=== PATIENT | female | born 1985 | race Hispanic/Latino ===

== ENCOUNTER 2023-12-30 00:48 | Emergency (ER) | payer SELFPAY ==
[2011-11-24 15:27] VITALS: BP 140/86
--- OUTSIDE RECORDS SUMMARY | 2023-12-30 00:51 | XMS REPORT | Continuity of Care Document ---
Author Name Unknown Address [address] [facility] [address] [place] [address] [facility] thconnect Address [address] [place] [address] Care Team Providers Care Institutional Asset Manager Name Role Phone Pcp, Patient Does Not Have A Primary Care Physic barbie Demetrius BAIRES Attending Clinician Unavailable Demetrius Evans Attending Clinician [phone] ALLAN MAST Attending Clinician Unavailable Allan Mast MD Attending Clinician [phone] DIANA VILLAR Attending Clinician Unavailable ALLAN MAST Admitting Clinician Unavailable Allergies, Adverse Reactions, Alerts Allergy Name Allergy Type Status Severity Reaction(s) Onset Date Inactive Date Treating Clinician Comments Source NO KNOWN ALLERGIE S Drug Class Active [facility] Social History Social Habit Start Date Stop Date Quantity Comments Source Sexual orientation U [facility] Sex Assigned At 1985 00:00:00 1985 00:00:00 [facility] Smoking Status Start Date Stop Date Source Tobacco smoking consumption unknown [facility] Medications Ordered Medication Name Filled Medication Name Start Date Stop Date Current Medication? Ordering Clinician Indication Dosage Frequency Signature (SIG) Comments Components Source ketorolac (TORADOL) injection 30 mg 12-11 07:00: 00 12-11 05:58 :00 No 30mg 30 mg, Intramuscu lar, ONCE, 1 dose, On Tue12/12/23 at 0200, [facility] ibuprofen 600 mg tablet 12-11 00:00: 00 Yes [id number] 600mg Take 1 tablet by mouth every 6 (six) hours as needed for Pain (scale 4-6). [facility] cephALEXin 500 mg capsule 12-11 00:00: 00 12-19 04:59 :00 Yes [id number] 500mg Take 1 capsule by mouth in the morning and 1 capsule at noon and 1 capsule in the evening. Do all this for 7 days. [facility] proCHLORper azine (COMPAZINE) 10 mg in NaCl 0.9% (NS) piggyback 03:45: 00 04:23 :00 No 10mg 10 mg, IV Piggyback, at 100 mL/hr Administer over 30 Minutes, ONCE, 1 dose, On Tue11/30/23 at 2145, [facility] ketorolac (TORADOL) injection 30 mg 03:45: 00 03:25 :00 No 30mg 30 mg, Slow IV Push, ONCE NOW, 1 dose, On Tue11/30/23 at 2145, [facility] dexamethaso ne sod phos PF injection 10 mg 03:15: 00 03:25 :00 No 10mg 10 mg, Slow IV Push, ONCE, 1 dose, On Tue11/30/23 at 2115, 1 mL [facility] Vital Signs Vital Name Observation Time Observation Value Comments S hector Systolic blood pressure 2023-12-12 04:28:00 140 mm[Hg] [facility] Diastolic blood pressure 2023-12-12 04:28:00 86 mm[Hg] [facility] Heart rate 2023-12-12 04:28:00 98 /min [facility] Body temperature 2023-12-12 04:28:00 36.61 Aruna [facility] Respiratory rate 2023-12-12 04:28:00 18 /min [facility] Body height 2023-12-12 04:28:00 162.6 cm [facility] Body weight 2023-12-12 04:28:00 108.863 kg [facility] BMI 2023-12-12 04:28:00 41.20 kg/m2 [facility] Oxygen saturation in Arterial blood by Pulse oximetry 2023-12-12 04:28:00 100 /min [facility] Systolic blood pressure 2023-12-01 03:25:00 135 mm[Hg] [facility] Diastolic blood pressure 2023-12-01 03:25:00 96 mm[Hg] [facility] Heart rate 2023-12-01 03:25:00 101 /min [facility] Respiratory rate 2023-12-01 03:25:00 18 /min [facility] Oxygen saturation in Arterial blood by Pulse oximetry 2023-12-01 03:25:00 97 /min [facility] Body temperature 2023-12-01 02:43:00 36.72 Aruna [facility] Body height 2023-12-01 02:43:00 154.9 cm [facility] Body weight 2023-12-01 02:43:00 99.791 kg [facility] BMI 2023-12-01 02:43:00 41.57 kg/m2 [facility] Procedures Procedure Date / Time Performed Performing Clinician Source CONSENT/REFUSAL FOR DIAGNOSIS AND TREATMENT 2023-12-12 04:19:48 Doctor Unassigned, Laura [facility] BASIC METABOLIC PANEL (NA, K, CL, CO2, GLUCOSE, BUN, CREATININE, CA) 2023-12-01 03:23:00 Allan Mast [facility] SEDIMENTATION RATE 2023-12-01 03:23:00 Keegan Mast [facility] CBC WITH DIFF 2023-12-01 03:23:00 Allan Mast [facility] CONSENT/REFUSAL FOR DIAGNOSIS AND TREATMENT 2023-12-01 02:39:59 Doctor Unassigned, Laura [facility] Encounters Start Date/Time End Date/Time Encounter Type Admission Type Attending Clinicians Care Facility Care Department Encounter ID Source 2023-12-11 23:31:00 2023-12-12 01:51:00 Emergency X Demetrius BAIRES [facility] ERT [id number] [facility] 2023-12-11 23:31:00 2023-12-12 01:51:00 Emergency Demetrius Bairesge [facility] 1.2.840.114 350.1.13.10 4.2.7.2.686 [id number] [facility] 2023-11-30 20:45:00 2023-11-30 23:23:00 Emergency X ALLAN MAST [facility] ERT [id number] [facility] 2023-11-30 20:45:00 2023-11-30 23:23:00 Emergency Allan Mast [facility] 1.2.840.114 350.1.13.10 4.2.7.2.686 [id number] [facility] 2023-07-18 10:45:00 2023-07-18 10:45:00 Outpatient DIANA VILLAR [id number] Kaila Yancey Results Test Description Test Time Test Comments Results Result Co mments Source [facility] (NA, K, CL, CO2, GLUCOSE, BUN, CREATININE, CA)2023-12-01 04:40:26* Test Item Value Reference Range Interpretation Comme nts NA (test code = 4781542865) 137 mmol/L 135-145 K (test code = 2561583784) 4.1 mmol/L 3.5-5.0 CL (test code = 5593110334) 111 mmol/L 98-108 H CO2 TOTAL (test code = 4235401875) 21 mmol/L 23-31 L AGAP (test code = 8467230683) 5 2-16 BUN (test code = 7725325533) 14 mg/dL 7-23 GLUCOSE (test code = 4008403011) 106 mg/dL 70-110 CREATININE (test code = 2160-0) 0.73 mg/dL 0.50-1.04 CALCIUM (test code = 1985108314) 8.6 mg/dL 8.6-10.6 eGFR (test code = 37391-0) 108.8 mL/min/1.73m2 CKD-EPI eGFR (2020). Assuming creatinine has been stable day-to-day for at least three months, the eGFR indicates Category G1 (>= 90 mL/min/1.73 m2) Lab Interpretation (test code = 47313-3) Abnormal [facility] with Bbzx3657-82-52 04:17:46* Test Item Value Reference Range Interpretation Comme nts WBC (test code = 6690-2) 8.53 4.30-11.10 RBC (test code = 789-8) 3.69 3.93-5.25 L HGB (test code = 718-7) 8.0 g/dL 11.6-15.0 L HCT (test code = 4544-3) 27.2 % 35.7-45.2 L MCV (test code = 787-2) 73.7 fL 80.6-95.5 L MCH (test code = 785-6) 21.7 pg 25.9-32.8 L MCHC (test code = 786-4) 29.4 g/dL 31.6-35.1 L RDW-SD (test code = 68173-4) 43.3 fL 39.0-49.9 RDW-CV (test code = 788-0) 16.3 % 12.0-15.5 H PLT (test code = 777-3) 537 166-358 H MPV (test code = 37396-2) 9.3 fL 9.5-12.9 L NRBC/100 WBC (test code = 3038734973) 0.0 0.0-10.0 NRBC x10^3 (test code = 5781223739) See_Comment [Automated messa ge] The system which generated this result transmitted reference range: 10*3/?L. The reference range was not used to interpret this result as normal/abnormal. GRAN MAT (NEUT) % (test code = 770-8) 59.5 % IMM GRAN % (test code = 4049491576) 0.40 % LYMPH % (test code = 736-9) 29.0 % MONO % (test code = 5905-5) 9.0 % EOS % (test code = 713-8) 1.6 % BASO % (test code = 706-2) 0.5 % GRAN MAT x10^3(ANC) (test code = 6770612471) 5.08 10*3/uL 1.88-7.09 IMM GRAN x10^3 (test code = 2414389991) 0.03 10*3/uL 0.00-0.06 LYMPH x10^3 (test code = 731-0) 2.47 10*3/uL 1.32-3.29 MONO x10^3 (test code = 742-7) 0.77 10*3/uL 0.33-0.92 EOS x10^3 (test code = 711-2) 0.14 10*3/uL 0.03-0.39 BASO x10^3 (test code = 704-7) 0.04 10*3/uL 0.01-0.07 Lab Interpretation (test code = 25609-6) Abnormal [facility] Notes Date/Time Note Provider Source 2023-12-12 01:48:37 1Er7avyx6cl2xwys3IuZRlUXQcZ5OB3Dv8/+1 Bg4VT96vLVmMZxUq25wcbXoFGex5325-17-39 T01:48:37 Pt given printed and verbal discharge instructions regarding fish hook in forearm/headache, encouraged hydration,Prescriptions sent to pt's pharmacyDiscussed ibuprofen and to take with food to avoid GI distress, alternate with Tylenol to help with pain and/or feverDiscussed antibiotic therapy and to take until all completed unless adverse reaction occurs - if occurs, discontinue medication and follow up with pcp/seek medical attentionPt verbalized understanding of instructions,pt encouraged to follow up with pcpAdvised to seek medical attention for new/prolonged/worsening of symptoms,No adverse reaction to meds given in ER noted upon dischargePIV d'cd, dressing to site, catheter in tact.Awake, alert oriented, resp reg unlabored, skin w/d, pt leaving in no apparent distress, 94910-2Vqiassjxi department JjifDQ6434-22-45Z67:50:56[facility] department NoteTXT1.2.840.332686.1.13.104.2.7.2. 549417|[id number] for patient eenv35321-6VwqbNRRZEZVFESANukfkflhz C-CDA narrative rnjf801569472Vmfywc R Shehadeh RN[address] TwbmJugwydbkaUczxgeweiQNPJ7808767801D REXVMLHBPQVRGMRUFLETX9957-66-28H02:50 :561.2.840.574817.1.72.3.15|1.2.840.1 88853.1.13.104.2.7.2.727879_[id number] 4 Sia Nieto RN [facility] 2023-12-11 23:20:57 kAHoTRi707sAT0vlzeskfI1VFZZ3Qo64vB+pY XKjmlemDs97ogKlFtXgnswHd1S44943-79-35 T23:20:57 Pt arrives ambulatory to ED c/o a headache, & neck stiffness. She says that she has seen an eye dr and a specialist that have told her she whatever is causing the headaches is putting pressure on her optic nerve affecting her vision. She says the pain is not improving and so she came in to be seen. She also reports that she was putting away fishing poles and a hook went into her left arm and she was unable to remove it. 94880-2Uejpntxkz department Triage bwapSN7857-99-61H14:28:06[facility] Triage noteTXT1.2.840.078871.1.13.104.2.7.2. 511923|[id number] for patient uhfz95595-5Fgczthegq department NoteLNNARRATIVEFormatted C-CDA narrative zsii288461844Vszivq L Williams RN[id number] SJEVKDEVTIMLCTPMDIMYI1621-47-26E64:28 :061.2.840.069503.1.72.3.15|1.2.840.1 66994.1.13.104.2.7.2.727879_[id number] 5 Sia Ashley RN [facility] 2023-11-30 22:48:00 /ZtIk3qsARMuOc+d2Rx+EQohWCG1im5M2ierF QNK682S+TqQz65wzZtboYKsM7gn6424-58-98 T22:48:00 RN states pt was seen walking out of the department, said she was leaving and she already self removed her IV. ALEXIS Shin did not see IV catheter in the room, reported to [facility] PD officer Gaetano. 49087-3Qfyfvcogi department FrefDP4097-51-50Q87:23:09[facility] department NoteTXT1.2.840.276170.1.13.104.2.7.2. 730733|[id number] for patient pgsz52409-4IforSJQOPPHDKGWPgggunynd C-CDA narrative jkbk645156813Wnokpi R Shehadeh RN[id number] HRUUISRXIDDGWCNYZMDBX1276-72-70I34:23 :091.2.840.985944.1.72.3.15|1.2.840.1 84439.1.13.104.2.7.2.727879_[id number] 4 Sia Nieto RN [facility] 2023-11-30 20:41:51 RtAG9vkKTYFvZ8kOmUAPVmoZ5WoywxTvkjbBu k/zKk/dwDg/Hxzf+xFBtXehYY4v2065-80-86 T20:41:51 Pt states that she has been having pressure to her head X1 week, pt states that she went to the eye doctor today and they said her otic nerve was swelling and she need to go to the hospital. 32386-8Qfyixqwqq department Triage tdjdIQ7428-28-76Q98:44:37[facility] Triage noteTXT1.2.840.169477.1.13.104.2.7.2. 573407|[id number] for patient gxqk25665-3Kzzwbawqm department NoteLNNARRATIVEFormatted C-CDA narrative pwqg502984310Dqxxsm J Hoot RN[address] Gs[id number] JKKSKMNYRMMODLIRAQMCZ2739-11-08G17:44 :371.2.840.655198.1.72.3.15|1.2.840.1 52919.1.13.104.2.7.2.727879_[id number] 3 Tracy Barajas RN [facility] 2023-11-30 20:40:00 QRCr+1lo+9rYQ+ci4KSpogjQd+scj9LH+IsKh Zx++EqVbxqHCx0x8lEUYlx9/w3N1543-63-56 T20:40:00 [facility] Emergency Department NotePatient Name: Richard Torres of : 1985 38 year old femaleTreatment Room: [place] [address]Medical Record Number: [id number] Care Physician: PATIENT DOES NOT HAVE A PCPPatient Escorted by: Self [9]Mode of Arrival: Personal means [1]EMS Treatment Prior to ED Arrival:CARD HANGER treatment: NoneTravel and Exposure Screening:SymptomsDoes patient have any of these symptoms?: (not recorded)Exposure ScreeningHas patient had contact with someone with a communicable disease in the last month?: (not recorded)Diseases exposed to:: (not recorded)Is Patient ?: (not recorded)Exposure Date: (not recorded)Chief Complaint:Chief ComplaintPatient presents withEye ProblemHistory of Present Illness:Pt states that she has been having pressure to her head X1 week, pt states that she went to the [facility] at [facility] today and they took some pictures of her eye and told her she had unspecific papilledema, and she was referred to and Wire Galvanizer Dr. Kvng Torres for further evaluation, but she decided to come to the ER instead.History provided by: PatientLanguage managing supervisor used: NoHeadachePain location: OccipitalQuality: Dull (Pressure sensation)Radiates to: EyesSeverity currently: 03/12Severity at highest: 810Onset quality: GradualDuration: 1 weekTiming: ConstantProgression: UnchangedChronicity: NewSimilar to prior headaches: noContext comment: At restRchippewa city montevideo hospitaleved by: NothingWorsened by: NothingIneffective treatments: None triedAssociated symptoms: blurred vision and visual changeAssociated symptoms: no abdominal pain, no congestion, no cough, no dizziness, no ear pain, no eye pain, no fatigue, no fever, no focal weakness, no loss of balance, no myalgias, no nausea, no neck stiffness, no numbness, no paresthesias, no photophobia, no seizures, no sinus pressure, no sore throat, no swollen glands, no syncope, no tingling, no URI, no vomiting and no weaknessAssociated symptoms comment: Scotoma in her right eyeRisk factors: no anger, no family hx of SAH, does not have insomnia and lifestyle not sedentaryRisk factors comment: Obesity, HTNPast Medical History/Immunizations:History reviewed. No pertinent past medical history.Tetanus received in last 5 years: NoChildhood immunizations: Ws-wm-lileTtkouhsft:No Known AllergiesPast Social History:Substance & Sexual ActivityNo substance use or sexual activity history on file.Past Surgical History:History reviewed. No pertinent surgical history.Review of Systems:Review of SystemsConstitutional: Negative for activity change, appetite change, chills, diaphoresis, fatigue and fever.HENT: Negative for congestion, ear discharge, ear pain, rhinorrhea, sinus pressure, sore throat and trouble swallowing.Eyes: Positive for blurred vision and visual disturbance. Negative for photophobia, pain, discharge and redness.Respiratory: Negative for cough, chest tightness, shortness of breath and wheezing.Cardiovascular: Negative for chest pain, palpitations, leg swelling and syncope.Gastrointestinal: Negative for abdominal distention, abdominal pain, blood in stool, constipation, nausea and vomiting.Genitourinary: Negative for dysuria, urgency, polyuria, frequency, hematuria and flank pain.Musculoskeletal: Negative for arthralgias, joint swelling, myalgias and neck stiffness.Skin: Negative for color change, rash and wound.Neurological: Positive for headaches. Negative for dizziness, focal weakness, seizures, syncope, facial asymmetry, weakness, light-headedness, numbness, paresthesias and loss of balance.Psychiatric/Behavioral: Negative for agitation, confusion, hallucinations and self-injury. The patient is not nervous/anxious.Hematological: Negative for adenopathy and cold intolerance. Does not bruise/bleed easily.Endocrine: Negative for cold intolerance, polydipsia and polyuria.Physical Exam:ED Triage Vitals [11/30/232042]Weight 99.8 kg (220 lb)Actual or estimatedHeight 1.549 m (5' 1")BP (!) 170/95Pulse 103Resp 18Temp 36.7 ?C (98.1 ?F)Temp srcSpO2 100 %Measured on Room airPhysical ExamRadiology:CT HEAD WO CONTRASTPreliminary ResultCT HEAD WO CONTRASTHISTORY: Headache, new or worsening, neuro deficit (Age 18-49y)COMPARISON: NoneTECHNIQUE: Contiguous axial imaging to the base of skull was obtained with2.5 mm slices without intravenous contrast. 5 mm axial, coronal, andsagittal reformats were obtained.FINDINGS:The ventricles and cerebral sulci are normal in caliber and configuration.No hydrocephalus, midline shift or pathological extra-axial fluidcollection is present. The basal cisterns are unremarkable.There is no acute intracranial hemorrhage or significant mass effect. Noparenchymal attenuation abnormality. The price-white matter differentiationis preserved.The mastoid air cells and paranasal air sinuses are clear. The calvariumand central skull base are unremarkable.IMPRESSIONNo acute intracranial abnormalities.Preliminary Report Dictated by Resident: Daisy Kong Results:Lab ResultsCBC WITH DIFF - AbnormalResult Value Ref RangeWBC 8.53 4.30 - 11.10 10*3/?LRBC 3.69 (*) 3.93 - 5.25 10*6/?LHGB 8.0 (*) 11.6 - 15.0 g/dLHCT 27.2 (*) 35.7 - 45.2 %MCV 73.7 (*) 80.6 - 95.5 fLMCH 21.7 (*) 25.9 - 32.8 pgMCHC 29.4 (*) 31.6 - 35.1 g/dLRDW-SD 43.3 39.0 - 49.9 fLRDW-CV 16.3 (*) 12.0 - 15.5 %PLT 537 (*) 166 - 358 10*3/?LMPV 9.3 (*) 9.5 - 12.9 fLNRBC/100 WBC 0.0 0.0 - 10.0 /100 WBCsNRBC x10^3 <0.01 10*3/?LGRAN MAT (NEUT) % 59.5 %IMM GRAN % 0.40 %LYMPH % 29.0 %MONO % 9.0 %EOS % 1.6 %BASO % 0.5 %GRAN MAT x10^3(ANC) 5.08 1.88 - 7.09 10*3/uLIMM GRAN x10^3 0.03 0.00 - 0.06 10*3/uLLYMPH x10^3 2.47 1.32 - 3.29 10*3/uLMONO x10^3 0.77 0.33 - 0.92 10*3/uLEOS x10^3 0.14 0.03 - 0.39 10*3/uLBASO x10^3 0.04 0.01 - 0.07 10*3/uLBASIC METABOLIC PANEL (NA, K, CL, CO2, GLUCOSE, BUN, CREATININE, CA) - AbnormalNA 137 135 - 145 mmol/LK 4.1 3.5 - 5.0 mmol/LCL 111 (*) 98 - 108 mmol/LCO2 TOTAL 21 (*) 23 - 31 mmol/LAGAP 5 2 - 16BUN 14 7 - 23 mg/dLGLUCOSE 106 70 - 110 mg/dLCREATININE 0.73 0.50 - 1.04 mg/dLCALCIUM 8.6 8.6 - 10.6 mg/dLeGFR 108.8 mL/min/1.26u8GJYULWRRHMYIM RATE - NormalESR 17 0 - 20 mm/HREKG:If EKG completed, see Procedure Note.Orders and Treatments:Orders Placed This EncounterProceduresCT HEAD WO CONTRASTCbc with DiffBasic Metabolic Panel (NA, K, CL, CO2, GLUCOSE, BUN, CREATININE, CA)Sedimentation RateOrders Placed This EncounterMedicationsketorolac (TORADOL) injection 30 mgproCHLORperazine (COMPAZINE) 10 mg in NaCl 0.9% (NS) piggybackdexamethasone sod phos PF injection 10 mgenalaprilat (VASOTEC I.V.) injection 1.25 mgFirst Provider Eval:ED EventsDate/Time Event User Menywvia62/28/242049 Medical Screening Begins ALLAN MAST MD --11/30/232049 First Provider Evaluation ALLAN MAST MD --ED COURSEPatient's symptoms totally resolved with the treatment provided in the ED, she left the Hospital before her disposition because she wanted to go to smoke.Diagnosis/Impression as of 11/30/23 2248Acute intractable headache, unspecified headache typeIron deficiency anemia, unspecified iron deficiency anemia typeHistory of papilledemaProcedures:ProceduresMDM:M edical Decision MakingProblems Addressed:Acute intractable headache, unspecified headache type: complicated acute illness or injury with systemic symptomsHistory of papilledema: undiagnosed new problem with uncertain prognosisDetails: Patient left the Ed before additional evaluation or treatment could be performed for her adequate diagnostic evaluation.Iron deficiency anemia, unspecified iron deficiency anemia type: undiagnosed new problem with uncertain prognosisAmount and/or Complexity of Data ReviewedExternal Data Reviewed: labs and notes.Details: From previous visits reviewed and compared with current dataLabs: ordered. Decision-making details documented in ED Course.Radiology: ordered.Discussion of management or test interpretation with external provider(s): PATIENT ELOPED BEFORE DISPOSITIONRiskPrescription drug management.Flowsheet Documentation:Scoring Tools:No data recordedDisposition/Condition:ED DispositionED DispositionElope - Before DispoConditionStableComment--Discharg e Medications:Patient's MedicationsNo medications on fileFollow-up:Electronically signed by:Allan Mast MD11/30/23 2248 84268-1Rtiwfhhyw Emergency department XlarUH9084-18-45U59:48:40[facility] Emergency department NoteTXT1.2.840.097683.1.13.104.2.7.2. 092670|[id number] for patient eyhz71716-8Dpcvyvxge department NoteLNNARRATIVEFormatted C-CDA narrative textUT19 Cannon StreetUrjzNiecqqkhpMctbzszphTRPL6193471137H YTKTHQHWTRPPXXVRORQTY6426-68-76O11:48 :401.2.840.967918.1.72.3.15|1.2.840.1 39857.1.13.104.2.7.2.727879_[id number] 8 [facility]
--- NOTE | 2023-12-30 01:19 | EDPHYS ---
Physician Documentation [facility] Name: Natali Bradley Age: 38 yrs Sex: Female : 1985 Arrival Date: 12/30/2023 Time: 00:48 Bed Waiting Private MD: ED Physician Ji Callejas HPI: 12/29 01:14 This 38 yrs old Female presents to ER via Unassigned with complaints of sp4 Headache, eye pressure. 01:19 Has eloped from the waiting room prior to being seen. sp4 MDM: 01:19 Patient medically screened. sp4 Administered Medications: No medications were administered Disposition: 07:27 Chart complete. sp4 Disposition Summary: 12/30/23 01:18 Eloped Notes: Disposition: Before Triage pf1 Reason: unknown pf1 Signatures: Dispatcher [employer] Mindi Jacobsen RN RN pf1 Ji Callejas MD MD sp4
--- NOTE | 2023-12-30 01:19 | ER ---
Nurse's Notes [facility] Name: Natali Bradley Age: 38 yrs Sex: Female : 1985 Arrival Date: 12/30/2023 Time: 00:48 Bed Waiting Private MD: Diagnosis: Assessment: 12/29 01:05 Reassessment: called patient from lobby no response, security stated seen patient leave pf1 the lobby. 01:17 Reassessment: called patient from lobby no response. pf1 ED Course: 00:50 Patient arrived in ED. rg4 01:13 Ji Callejas MD is Attending Physician. sp4 Administered Medications: No medications were administered Outcome: 01:18 Patient left the ED. pf1 Signatures: Jesusita Richards rg4 Mindi Huitron RN RN pf1 Ji Callejas MD MD sp4 Corrections: (The following items were deleted from the chart) 01:18 01:05 Reassessment: called from lobby no response, security stated seen patient leave pf1 the lobby. pf1
== END 2023-12-30 01:18 | disposition left against medical advice (07) ==
LOC: ER 00:48
DX: Z02.9 Encounter for administrative examinations, unspecified (principal)

== ENCOUNTER 2024-01-02 00:36 | Emergency (ER) | payer SELFPAY ==
--- OUTSIDE RECORDS SUMMARY | 2024-01-02 00:48 | XMS REPORT | Continuity of Care Document ---
Author Name Unknown Address [address] [place] [address] [facility] thconnect Address [address] [facility] [address] [address] [facility] [place] [address] Care Team Providers Care Production Troubleshooter Name Role Phone Pcp, Patient Does Not Have A Primary Care Physic barbie Demetrius BAIRES Attending Clinician Unavailable Demetrius Evans Attending Clinician [phone] ALLAN MAST Attending Clinician Unavailable Allan Mast MD Attending Clinician [phone] DIANA VILLAR Attending Clinician Unavailable ALLAN MAST Admitting Clinician Unavailable Allergies, Adverse Reactions, Alerts Allergy Name Allergy Type Status Severity Reaction(s) Onset Date Inactive Date Treating Clinician Comments Source NO KNOWN ALLERGIE S Drug Class Active [facility] Social History Social Habit Start Date Stop Date Quantity Comments Source Sexual orientation U [facility] Sex Assigned At 1985 00:00:00 1985 00:00:00 [facility] Smoking Status Start Date Stop Date Source Tobacco smoking consumption unknown [facility] Medications Ordered Medication Name Filled Medication Name Start Date Stop Date Current Medication? Ordering Clinician Indication Dosage Frequency Signature (SIG) Comments Components Source ketorolac (TORADOL) injection 30 mg 12-11 07:00: 00 12-11 05:58 :00 No 30mg 30 mg, Intramuscu lar, ONCE, 1 dose, On Tue12/12/23 at 0200, [facility] ibuprofen 600 mg tablet 12-11 00:00: 00 Yes [id number] 600mg Take 1 tablet by mouth every 6 (six) hours as needed for Pain (scale 4-6). [facility] cephALEXin 500 mg capsule 12-11 00:00: 00 12-19 04:59 :00 Yes [id number] 500mg Take 1 capsule by mouth in the morning and 1 capsule at noon and 1 capsule in the evening. Do all this for 7 days. [facility] proCHLORper azine (COMPAZINE) 10 mg in NaCl 0.9% (NS) piggyback 03:45: 00 04:23 :00 No 10mg 10 mg, IV Piggyback, at 100 mL/hr Administer over 30 Minutes, ONCE, 1 dose, On Tue11/30/23 at 2145, [facility] ketorolac (TORADOL) injection 30 mg 03:45: 00 03:25 :00 No 30mg 30 mg, Slow IV Push, ONCE NOW, 1 dose, On Tue11/30/23 at 2145, [facility] dexamethaso ne sod phos PF injection 10 mg 03:15: 00 03:25 :00 No 10mg 10 mg, Slow IV Push, ONCE, 1 dose, On Tue11/30/23 at 2115, 1 mL [facility] Vital Signs Vital Name Observation Time Observation Value Comments S ource Systolic blood pressure 2023-12-12 04:28:00 140 mm[Hg] [facility] Diastolic blood pressure 2023-12-12 04:28:00 86 mm[Hg] [facility] Heart rate 2023-12-12 04:28:00 98 /min [facility] Body temperature 2023-12-12 04:28:00 36.61 Aruna [facility] Respiratory rate 2023-12-12 04:28:00 18 /min [facility] Body height 2023-12-12 04:28:00 162.6 cm [facility] Body weight 2023-12-12 04:28:00 108.863 kg [facility] BMI 2023-12-12 04:28:00 41.20 kg/m2 [facility] Oxygen saturation in Arterial blood by Pulse oximetry 2023-12-12 04:28:00 100 /min [facility] Systolic blood pressure 2023-12-01 03:25:00 135 mm[Hg] [facility] Diastolic blood pressure 2023-12-01 03:25:00 96 mm[Hg] [facility] Heart rate 2023-12-01 03:25:00 101 /min [facility] Respiratory rate 2023-12-01 03:25:00 18 /min [facility] Oxygen saturation in Arterial blood by Pulse oximetry 2023-12-01 03:25:00 97 /min [facility] Body temperature 2023-12-01 02:43:00 36.72 Aruna [facility] Body height 2023-12-01 02:43:00 154.9 cm [facility] Body weight 2023-12-01 02:43:00 99.791 kg [facility] BMI 2023-12-01 02:43:00 41.57 kg/m2 [facility] Procedures Procedure Date / Time Performed Performing Clinician Source CONSENT/REFUSAL FOR DIAGNOSIS AND TREATMENT 2023-12-12 04:19:48 Doctor Unassigned, Hubbard [facility] BASIC METABOLIC PANEL (NA, K, CL, CO2, GLUCOSE, BUN, CREATININE, CA) 2023-12-01 03:23:00 Allan Mast [facility] SEDIMENTATION RATE 2023-12-01 03:23:00 Keegan Mast [facility] CBC WITH DIFF 2023-12-01 03:23:[address] [facility] CONSENT/REFUSAL FOR DIAGNOSIS AND TREATMENT 2023-12-01 02:39:59 Doctor Unassigned, Hubbard [facility] Encounters Start Date/Time End Date/Time Encounter Type Admission Type Attending [facility] Care Department Encounter ID Source 2023-12-11 23:31:00 2023-12-12 01:51:00 Emergency X Demetrius BAIRES [facility] ERT [id number] [facility] 2023-12-11 23:31:00 2023-12-12 01:51:00 Emergency Demetrius Bairesge [facility] [id number] 350.1.13.10 4.2.7.2.686 [id number] [facility] 2023-11-30 20:45:00 2023-11-30 23:23:00 Emergency ALLAN DUVAL [facility] ERT [id number] [facility] 2023-11-30 20:45:00 2023-11-30 23:23:00 Emergency Allan Mast [facility] 1.2.840.114 350.1.13.10 4.2.7.2.686 [id number] [facility] 2023-07-18 10:45:00 2023-07-18 10:45:00 Outpatient DIANA VILLAR [id number] Kaila Yancey Results Test Description Test Time Test Comments Results Result Co mments Source [facility] (NA, K, CL, CO2, GLUCOSE, BUN, CREATININE, CA)2023-12-01 04:40:26* Test Item Value Reference Range Interpretation Comme nts NA (test code = 6307735099) 137 mmol/L 135-145 K (test code = 4567960318) 4.1 mmol/L 3.5-5.0 CL (test code = 0668293985) 111 mmol/L 98-108 H CO2 TOTAL (test code = 1884262034) 21 mmol/L 23-31 L AGAP (test code = 2180767079) 5 2-16 BUN (test code = 3313202353) 14 mg/dL 7-23 GLUCOSE (test code = 8911423754) 106 mg/dL 70-110 CREATININE (test code = 2160-0) 0.73 mg/dL 0.50-1.04 CALCIUM (test code = 0410541793) 8.6 mg/dL 8.6-10.6 eGFR (test code = 81552-0) 108.8 mL/min/1.73m2 CKD-EPI eGFR (2020). Assuming creatinine has been stable day-to-day for at least three months, the eGFR indicates Category G1 (>= 90 mL/min/1.73 m2) Lab Interpretation (test code = 37628-7) Abnormal [facility] with Qwis7864-59-69 04:17:46* Test Item Value Reference Range Interpretation [...] g/dL 31.6-35.1 L RDW-SD (test code = 07378-0) 43.3 fL 39.0-49.9 RDW-CV (test code = 788-0) 16.3 % 12.0-15.5 H PLT (test code = 777-3) 537 166-358 H MPV (test code = 09931-3) 9.3 fL 9.5-12.9 L NRBC/100 WBC (test code = 0225561149) 0.0 0.0-10.0 NRBC x10^3 (test code = 6119867502) See_Comment [Automated messa ge] The system which generated this result transmitted reference range: 10*3/?L. The reference range was not used to interpret this result as normal/abnormal. GRAN MAT (NEUT) % (test code = 770-8) 59.5 % IMM GRAN % (test code = 2471961164) 0.40 % LYMPH % (test code = 736-9) 29.0 % MONO % (test code = 5905-5) 9.0 % EOS % (test code = 713-8) 1.6 % BASO % (test code = 706-2) 0.5 % GRAN MAT x10^3(ANC) (test code = 8300853036) 5.08 10*3/uL 1.88-7.09 IMM GRAN x10^3 (test code = 1633788976) 0.03 10*3/uL 0.00-0.06 LYMPH x10^3 (test code = 731-0) 2.47 10*3/uL 1.32-3.29 MONO x10^3 (test code = 742-7) 0.77 10*3/uL 0.33-0.92 EOS x10^3 (test code = 711-2) 0.14 10*3/uL 0.03-0.39 BASO x10^3 (test code = 704-7) 0.04 10*3/uL 0.01-0.07 Lab Interpretation (test code = 80504-8) Abnormal [facility] Notes Date/Time Note Provider Source 2023-12-12 01:48:37 6Mb3apcj8wa2urxi1AaYVtRBSoD5PD4Ke6/+1 Wb7KW87nIYwVNnYy86ytcXcDZtw4488-32-14 T01:48:37 Pt given printed and verbal discharge [...] w/d, pt leaving in no apparent distress, 38761-6Ouzsbimwv department WtocQP6696-16-83O28:50:56[facility] department NoteTXT1.2.840.159023.1.13.104.2.7.2. 303025|[id number] for patient mjxs59867-1NwjhLWTFXFILXBNHfqkoedws C-CDA narrative twbn194590813Hikcqa R Shehadeh RN[address] YregJxynjstidIntustrcwVJUX6981943411P LTCSSUKMWHKVAKBOPHMVT8883-59-93C48:50 :561.2.840.038474.1.72.3.15|1.2.840.1 88261.1.13.104.2.7.2.727879_[id number] 4 Sia Nieto RN [facility] 2023-12-11 23:20:57 rOWaXPx368fBT7hnfdhgcY0MOTV9Bh42kV+pY ABsaghhJt80bxNqUhUpwldEv4C17041-10-85 T23:20:57 Pt arrives ambulatory to ED c/o [...] and she was unable to remove it. 90224-9Ybaxrfcwt department Triage jbpiIE7743-44-85B86:28:06[facility] department Triage noteTXT1.2.840.903237.1.13.104.2.7.2. 580423|[id number] for patient dios08804-9Jbjljjcjk department NoteLNNARRATIVEFormatted C-CDA narrative [id number] L Williams RN[id number] IJDVFUBJNRHGSQOHNEBXI1107-17-10N40:28 :061.2.840.375927.1.72.3.15|1.2.840.1 06539.1.13.104.2.7.2.727879_[id number] 5 Sia Ashley RN [facility] 2023-11-30 22:48:00 /HnEs5vvASCzLm+d2Rx+MEhlBWQ2sz8D9aaxV UOV955R+LmSq01zbHasyAHtJ0oa5604-99-19 T22:48:00 RN states pt was seen walking out of the department, said she was leaving and she already self removed her IV. ALEXIS Shin did not see IV catheter in the room, reported to [facility] PD officer Gaetano. 71897-4Rtknkjyni department UgphRS2993-27-87G61:23:09[facility] department NoteTXT1.2.840.851038.1.13.104.2.7.2. 055550|[id number] for patient jqtx90930-0WfiyDMRJZAPRJUUHodfkfuid C-CDA narrative rrrm506450261Zwqall R Shehadeh RN[id number] SPGOBWZUNQXSOAQNAWSNL9166-43-35Z19:23 :091.2.840.936196.1.72.3.15|1.2.840.1 61270.1.13.104.2.7.2.727879_[id number] 4 Sia Nieto RN [facility] 2023-11-30 20:41:51 TzSS2wzJKVGrV4hEzPEWFliN5NzqksYeoieAb k/zKk/dwDg/Hxzf+gFGfNujAB3c3606-59-20 T20:41:51 Pt states that she has been having pressure to her head X1 week, pt states that she went to the eye doctor today and they said her otic nerve was swelling and she need to go to the hospital. 46305-8Oezsqdupd department Triage gdidSO9576-35-94N41:44:37[facility] department Triage noteTXT1.2.840.937901.1.13.104.2.7.2. 409260|[id number] for patient jpfc39768-7Iaduqemzm department NoteLNNARRATIVEFormatted C-CDA narrative dlxe501766171Ertwud J Hoot RN[address]RieyWondmcooqBjujnmkcgCHQP1156734707A HSNOXVRVGWWQVVUIKFXXU0485-98-76X90:44 :371.2.840.431058.1.72.3.15|1.2.840.1 47366.1.13.104.2.7.2.727879_[id number] 3 Tracy Barajas RN [facility] 2023-11-30 20:40:00 QRCr+1lo+9rYQ+tn0ETumkfQs+scj9LH+IsKh Zx++TwQvscAJe7p6bTPXwq2/h4N1048-46-13 T20:40:00 [facility] Emergency Department NotePatient Name: Richard Torres of : 1985 38 year old femaleTreatment Room: [place] [address]Medical Record Number: [id number] Care Physician: PATIENT DOES NOT HAVE A PCPPatient Escorted by: Self [9]Mode of Arrival: Personal means [1]EMS Treatment Prior to ED Arrival:GUEST HISTORY CLERK treatment: NoneTravel and Exposure Screening:SymptomsDoes patient have [...] pt states that she went to the Inside Sales Account Representative at [facility] today and they took some pictures of her eye and told her she had unspecific papilledema, and she was referred to and Dock Manager Dr. Kvng Torres for further evaluation, but she decided to come to the ER instead.History provided by: PatientLanguage commissary worker used: NoHeadachePain location: OccipitalQuality: Dull (Pressure sensation)Radiates to: EyesSeverity currently: 03/12Severity at highest: 810Onset quality: GradualDuration: 1 weekTiming: ConstantProgression: UnchangedChronicity: NewSimilar to prior headaches: noContext comment: At restRelieved by: NothingWorsened by: NothingIneffective treatments: None triedAssociated [...] received in last 5 years: NoChildhood immunizations: Fu-ya-uyamEcblmphie:No Known AllergiesPast Social History:Substance & Sexual ActivityNo [...] mg/dLCALCIUM 8.6 8.6 - 10.6 mg/dLeGFR 108.8 mL/min/1.70s7WDNHTLUQGQNQX RATE - NormalESR 17 0 - 20 [...] 1.25 mgFirst Provider Eval:ED EventsDate/Time Event User Wafslecx55/28/242049 Medical Screening Begins ALLAN MAST MD --11/30/232049 [...] on fileFollow-up:Electronically signed by:Allan Mast MD11/30/23 2248 33134-7Qfrcxwhqu Emergency department WmqcXC3915-06-20F82:48:40[facility] Emergency department NoteTXT1.2.840.907573.1.13.104.2.7.2. 824578|[id number] for patient ghwn90735-8Sdskzvklm department NoteLNNARRATIVEFormatted C-CDA narrative textUT90 Jordan StreetIwoaIztkcziafHfqrcxghxWFDA1140513211L PZRVKXTEKZGLTZRMQBNIP2436-03-77O78:48 :401.2.840.254385.1.72.3.15|1.2.840.1 18819.1.13.104.2.7.2.727879_[id number] 8 [facility]
--- NOTE | 2024-01-02 01:30 | ER ---
Nurse's Notes [facility] Name: Natali Bradley Age: 38 yrs Sex: Female : 1985 Arrival Date: 01/02/2024 Time: 00:36 Bed 8 Private MD: Diagnosis: Headache Presentation: 01/01 00:38 Chief complaint: EMS states: Called to patient's home due to patient having a headache cm10 and blurred vision. Pt states that she saw her eye doctor a few weeks ago and was told that she has a build up behind her eyes causing the pressure. Pt also reports light sensitivity. Pt reports taking BC powder that helped with headache. Coronavirus screen: Client denies travel out of the [place] in the last 14 days. At this time, the client does not indicate any symptoms associated with coronavirus-19. Ebola Screen: Patient denies travel to an Ebola-affected area in the 21 days before illness onset. No symptoms or risks identified at this time. Initial Sepsis Screen: Does the patient meet any 2 criteria? HR > 90 bpm. No. Patient's initial sepsis screen is negative. Does the patient have a suspected source of infection? No. Patient's initial sepsis screen is negative. Risk Assessment: Do you want to hurt yourself or someone else? Patient reports no desire to harm self or others. Onset of symptoms was January 02, 2024. 00:38 Method Of Arrival: EMS: [place] [address] 00:38 Acuity: REKHA 3 cm10 Triage Assessment: 00:41 Headache History: The patient has had previous headaches and this one is similar to cm10 previous episodes. General: Appears in no apparent distress. comfortable, Behavior is calm, cooperative. Pain: Complains of pain in head Pain does not radiate. Pain currently is 8 out of 10 on a pain scale. Quality of pain is described as pressure, Pain began gradually, Also complains of photophobia. EENT: Reports photophobia. Neuro: No deficits noted. Level of Consciousness is awake, alert, obeys commands, Oriented to person, place, time, situation, Reports blurred vision headache photophobia. Cardiovascular: No deficits noted. Capillary refill < 3 seconds. Respiratory: No deficits noted. Airway is patent Respiratory effort is even, unlabored, Respiratory pattern is regular, symmetrical. GI: No deficits noted. : No deficits noted. No signs and/or symptoms were reported regarding the genitourinary system. Derm: No deficits noted. No signs and/or symptoms reported regarding the dermatologic system. Skin is intact, Skin is pink, warm \T\ dry. Musculoskeletal: No deficits noted. Range of motion: intact in all extremities. Historical: - Allergies: 00:40 No Known Allergies; cm10 - Home Meds: 00:40 None [Active]; cm10 - PMHx: 00:40 None; cm10 - PSHx: 00:40 None; cm10 - Immunization history:: Adult Immunizations up to date. - Social history:: Smoking status: Patient reports the use of cigarette tobacco products, smokes one pack cigarettes per day. - Family history:: not pertinent. - Hospitalizations: : No recent hospitalization is reported. Screenin:42 [facility] ED Fall Risk Assessment (Adult) History of falling in the last 3 months, cm10 including since admission No falls in past 3 months (0 pts) Confusion or Disorientation No (0 pts) Intoxicated or Sedated No (0 pts) Impaired Gait No (0 pts) Mobility Assist Device Used No (0 pt) Altered Elimination No (0 pt) Score/Fall Risk Level 0 - 2 = Low Risk Oriented to surroundings, Maintained a safe environment, Hourly rounding (assess needs \T\ fall precautionary measures) done. Abuse screen: Denies threats or abuse. Denies injuries from another. Nutritional screening: No deficits noted. Tuberculosis screening: No symptoms or risk factors identified. Assessment: 01:01 Reassessment: Pt states that she would like to leave because she does not have a baby cm10 sitter for her kids. Provider made aware. Vital Signs: 00:38 BP 137 / 59; Pulse 96; Resp 18 S; Temp 98.4(O); Pulse Ox 99% on R/A; Weight 104.33 kg; cm10 Height 5 ft. 4 in. ; Pain 8/10; 00:38 Body Mass Index 39.48 (104.33 kg, 162.56 cm) cm10 00:38 Pain Scale: Adult cm10 [place] Coma Score: 01:25 Eye Response: spontaneous(4). Motor Response: obeys commands(6). Verbal Response: rn oriented(5). Total: 15. ED Course: 00:37 Patient arrived in ED. cm10 00:40 Triage completed. cm10 00:42 Arm band placed on Patient placed in an exam room, on a stretcher, on pulse oximetry. cm10 00:42 Patient has correct armband on for positive identification. Bed in low position. Call cm10 light in reach. Side rails up X 1. Provided Education on: ER process and procedures.. Pulse ox on. NIBP on. Lights dimmed. 00:42 No provider procedures requiring assistance completed. cm10 00:43 Bucky Sanchez MD is Attending Physician. rn 00:46 Gem Elise, ALEXIS is Primary Nurse. cm10 01:34 Patient did not have IV access during this emergency room visit. cm10 Administered Medications: 00:53 Not Given (Physician Discretion): droperidol2.5 mg IVP once ha1 Medication: 00:42 VIS not applicable for this client. cm10 Outcome: 01:30 Discharge ordered by . rn 01:33 Discharged to home ambulatory, ha1 01:33 Condition: stable 01:33 Discharge instructions given to patient, Instructed on discharge instructions, follow up and referral plans. Demonstrated understanding of instructions, follow-up care, 01:37 Patient left the ED. ha1 Signatures: Bucky Sanchez MD MD rn Ayala, Heidy, RN RN ha1 Gem Elise, ALEXIS RN cm10
--- NOTE | 2024-01-02 01:30 | EDPHYS ---
Physician Documentation [facility] Name: Natali Bradley Age: 38 yrs Sex: Female : 1985 Arrival Date: 01/02/2024 Time: 00:36 Bed 8 Private MD: ED Physician Bucky Sanchez HPI: 01/01 01:25 This 38 yrs old Female presents to ER via EMS with complaints of Blurred rn Vision, Headache. 01:25 The patient complains of pain to the top of head and forehead. The patient describes rn the headache as aching. Onset: The symptoms/episode began/occurred 1 month(s) ago. Associated signs and symptoms: Pertinent positives: blurred vision, Pertinent negatives: fever, neck stiffness, rash, vision loss. Severity of symptoms: At its worst the pain was moderate, in the emergency department the pain is unchanged. The symptoms are alleviated by nothing. the symptoms are aggravated by nothing. The patient has experienced similar episodes in the past. Patient reports headaches for the last month. Has been seen by pump erector who told her had optic nerve swelling and to go to emergency room. Went to emergency room a couple weeks ago, CT head did not show anything acute, told to follow-up with neurology. Patient remembers somebody telling her something like "too much fluid in the brain", and that "happens in overweight women who smoke". Denies trauma. No fever. No vomiting. No focal neurological deficit. No slurred speech. Came here tonight because was told needed MRI. No acute change in symptoms that has been going on for a month at least.. Historical: - Allergies: 00:40 No Known Allergies; cm10 - Home Meds: 00:40 None [Active]; cm10 - PMHx: 00:40 None; cm10 - PSHx: 00:40 None; cm10 - Immunization history:: Adult Immunizations up to date. - Social history:: Smoking status: Patient reports the use of cigarette tobacco products, smokes one pack cigarettes per day. - Family history:: not pertinent. - Hospitalizations: : No recent hospitalization is reported. ROS: 01:25 Constitutional: Negative for fever, chills, and weight loss, Eyes: Negative for injury, rn pain, redness, and discharge, Neck: Negative for injury, pain, and swelling, Cardiovascular: Negative for chest pain, palpitations, and edema, Respiratory: Negative for shortness of breath, cough, wheezing, and pleuritic chest pain, Abdomen/GI: Negative for abdominal pain, nausea, vomiting, diarrhea, and constipation, Back: Negative for injury and pain, MS/Extremity: Negative for injury and deformity, Skin: Negative for injury, rash, and discoloration, Neuro: Positive for headache Exam: 01:25 Constitutional: This is a well developed, well nourished patient who is awake, alert, rn and in no acute distress. Head/Face: Normocephalic, atraumatic. Eyes: Pupils equal round Neck: Trachea midline, no masses palpated, and no cervical lymphadenopathy. Supple, full range of motion without nuchal rigidity, or vertebral point tenderness. No Meningismus. Cardiovascular: Regular rate and rhythm. No pulse deficits. Neuro: Awake and alert, GCS 15, oriented to person, place, time, and situation. Cranial nerves II-XII grossly intact. Motor strength 5/5 in all extremities. Sensory grossly intact. Cerebellar exam normal. Normal gait. Vital Signs: 00:38 BP 137 / 59; Pulse 96; Resp 18 S; Temp 98.4(O); Pulse Ox 99% on R/A; Weight 104.33 kg; cm10 Height 5 ft. 4 in. ; Pain 8/10; 00:38 Body Mass Index 39.48 (104.33 kg, 162.56 cm) cm10 00:38 Pain Scale: Adult cm10 Robinson Coma Score: 01:25 Eye Response: spontaneous(4). Motor Response: obeys commands(6). Verbal Response: rn oriented(5). Total: 15. MDM: 00:43 Patient medically screened. rn 01:25 Differential diagnosis: cluster headache, hypertensive headache, intracerebral rn hemorrhage, migraine, neoplasm, tension headache, trigeminal neuralgia, vasomotor headache, Pseudotumor cerebri. Data reviewed: vital signs, nurses notes. Refusal of service: The patient/guardian displays adequate decision making capability and despite a detailed discussion of alternatives, benefits, risks, and consequences refuses: CT Scan, all lab tests, Medications, Lumbar Puncture procedure. ED course: Patient states unable to stay for workup, something having to do with her respiratory supervisor. Patient understands the recommendation for imaging and possible lumbar puncture if elevated intracranial pressure is possibility. Talking to patient, sounds like other facility working diagnosis with possibly pseudotumor cerebri. Patient understands risks of going home prior to full workup or lumbar puncture. Will discharge with instructions to follow-up with neuro and PCP.. Administered Medications: 00:53 Not Given (Physician Discretion): droperidol2.5 mg IVP once ha1 Disposition Summary: 01/02/24 01:30 Discharge Ordered Notes: Location: Home rn Problem: new rn Symptoms: have improved rn Condition: Stable rn Diagnosis - Headache rn Followup: rn - With: Private Physician - When: As needed - Reason: Recheck today's complaints, Re-evaluation by your physician Discharge Instructions: - Discharge Summary Sheet rn - General Headache Without Cause rn Forms: - Medication Reconciliation Form rn - Thank You Letter rn - Antibiotic pit furnace melter - Prescription Opioid Use rn - Patient Portal Instructions rn - Leadership Thank You Letter rn Signatures: Dispatcher [employer] EDBucky An MD MD rn Martinez, Clarissa, RN RN cm10 Roxanna Wang RN ha1 Corrections: (The following items were deleted from the chart) 00:44 00:44 CBC+H.LAB.BRZ ordered. EDMS EDMS 00:44 00:44 BASIC METABOLIC PANEL+C.LAB.BRZ ordered. EDMS EDMS 00:44 00:44 Test, Urine+UC.LAB.BRZ ordered. EDMS EDMS 00:44 00:44 Urinalysis+U.LAB.BRZ ordered. EDMS EDMS 01:02 00:43 IV Saline Lock ordered. rn cm10 01:13 00:44 Head Brain Wo Cont+CT.RAD.BRZ ordered. EDMS EDMS
[2024-01-02 07:49] VITALS: BP 137/59; TEMP 98.4; O2SAT 99
== END 2024-01-02 01:37 | disposition home or self-care (01) ==
LOC: ER 00:36
DX: R51.9 Headache, unspecified (principal); F17.210 Nicotine dependence, cigarettes, uncomplicated
CPT/HCPCS: 99283